=== PATIENT | female | born 1940 | race American Indian/Alaskan Native ===

== ENCOUNTER 2017-02-20 14:08 | Inpatient (IN) | payer MEDICARE, MEDICAID ==
--- NOTE | 2017-02-20 18:30 | Emergency Department Report ---
ED Altered Mental Status HPI - General Chief Complaint: Weakness Stated Complaint: WEAKNESS Time Seen by Provider: 02/20/17 18:22 Source: EMS Mode of arrival: Stretcher Limitations: No Limitations - History of Present Illness Initial Comments: 77 YO FEMALE HAD AN EPISODE OF UNRESPONSIVENESS WHILE IN [facility] TODAY AT 1300. PT WAS ALTERED UNTIL SHE ARRIVED HERE AT 1400. SHE HAS H/O PRIOR CVA X 4YRS AGO WHICH LEFT HER WITH INABILITY TO SPEAK NOR[place]GI[place]. SHE IS NOR[place]GIAN APHASIC AND SOME LEFT SIDED WEAKNESS INN BOTH UPPER AND LOWER EXTREMITIES WITH MILD FACIAL DROOP. MD Complaint: altered mental status, decreased responsiveness -: Sudden, hour(s) (4hrs ago) Context: history of similar presen Associated Symptoms: denies other symptoms - Related Data Home Medications Medication Instructions Recorded Confirmed Last Taken Aspirin [Aspirin BABY CHEW TAB] 81 mg PO DAILY 07/31/13 04/02/14 02/20/17 Losartan [Cozaar] 50 mg PO QDAY 07/31/13 04/02/14 02/20/17 Multivit-Min/Iron/Folic/Lutein 1 each PO DAILY 04/02/14 04/02/14 02/20/17 [Centrum Silver Women Tablet] Pravastatin [Pravachol] 20 mg PO DAILY 04/02/14 04/02/14 02/19/17 Amiodarone [Cordarone 200 MG TAB] 200 mg PO 02/20/17 02/19/17 Apixaban [Eliquis] BID 02/20/17 02/20/17 Metoprolol Tartrate 50 mg PO BID 02/20/17 02/20/17 02/20/17 Omeprazole 20 mg PO BID 02/20/17 02/20/17 02/20/17 15:32 Allergies Allergy/AdvReac Type Severity Reaction Status Date / Time No Known Allergies Allergy Verified 08/01/13 00:56 ED Review of Systems ROS: Stated complaint: WEAKNESS Other details as noted in HPI Comment: All other systems reviewed and negative ED Past Medical Hx - Past Medical History Hx Hypertension: Yes Hx CVA: Yes Hx Diabetes: No Hx GERD: Yes Hx Arthritis: Yes Hx Dementia: Yes (Post CVA) Additional medical history: HIGH CHOLESTEROL - Family History Family history: hypertension - Social History Smoking Status: Never Smoker Substance Use Type: None - Medications Home Medications: Home Medications Medication Instructions Recorded Confirmed Last Taken Type Aspirin [Aspirin BABY CHEW TAB] 81 mg PO DAILY 07/31/13 04/02/14 02/20/17 History Losartan [Cozaar] 50 mg PO QDAY 07/31/13 04/02/14 02/20/17 History Multivit-Min/Iron/Folic/Lutein 1 each PO DAILY 04/02/14 04/02/14 02/20/17 History [Centrum Silver Women Tablet] Pravastatin [Pravachol] 20 mg PO DAILY 04/02/14 04/02/14 02/19/17 History Amiodarone [Cordarone 200 MG TAB] 200 mg PO 02/20/17 02/19/17 History Apixaban [Eliquis] BID 02/20/17 02/20/17 History Metoprolol Tartrate 50 mg PO BID 02/20/17 02/20/17 02/20/17 History Omeprazole 20 mg PO BID 02/20/17 02/20/17 02/20/17 15:32 History ED Physical Exam - General Limitations: Language Barrier (SPEAKS ONLY TERRY, RESIDUAL NOR[place]GIAN APHASIA FROM PRIOR CVA) General appearance: alert, in no apparent distress - Head Head exam: Present: atraumatic, normocephalic - Eye Eye exam: Present: normal appearance, EOMI - ENT ENT exam: Present: mucous membranes moist - Neck Neck exam: Present: normal inspection, full ROM - Respiratory Respiratory exam: Present: normal lung sounds bilaterally. Absent: respiratory distress, wheezes, rales - Cardiovascular Cardiovascular Exam: Present: regular rate, normal rhythm. Absent: systolic murmur, diastolic murmur, rubs, gallop - GI/Abdominal GI/Abdominal exam: Present: soft, normal bowel sounds, other (LARGE CENTRIPITAL FAT). Absent: distended, tenderness - Rectal Rectal exam: Present: deferred - Extremities Exam Extremities exam: Present: normal inspection, full ROM, tenderness (RIGHT KNEE SWOLLEN AND TENDER AROUND ENTIRE KNEE, NO CALF TENDERNESS BILATERAL, 4/5 WEAKNESS ON LEFT LEG, UNBALE TO LIFT RIGHT LEG BECAUSE OF KNEE PAIN) - Back Exam Back exam: Present: normal inspection - Neurological Exam Neurological exam: Present: alert, oriented X3, abnormal gait, motor sensory deficit (LEFT 3-4/5. RIGHT UNABLE TO RAISE LEG SECONDARY TO KNEE SWELLING), other (LEFT UPPER AND LOWER EXTREMITY WEAKNESS) - Psychiatric Psychiatric exam: Present: normal affect, normal mood - Skin Skin exam: Present: warm, dry, intact, normal color. Absent: rash ED Course Vital Signs 02/20/17 02/20/17 02/20/17 14:31 14:45 15:00 Temperature Pulse Rate 63 Respiratory 16 Rate Blood Pressure 146/70 149/70 O2 Sat by Pulse Oximetry 02/20/17 02/20/17 02/20/17 15:17 15:30 15:45 Temperature Pulse Rate Respiratory Rate Blood Pressure 110/89 156/87 171/86 O2 Sat by Pulse Oximetry 02/20/17 02/20/17 02/20/17 16:01 16:15 16:22 Temperature 98.5 F Pulse Rate Respiratory 18 Rate Blood Pressure 163/71 164/77 O2 Sat by Pulse 100 Oximetry 02/20/17 02/20/17 02/20/17 16:31 16:46 17:01 Temperature Pulse Rate Respiratory Rate Blood Pressure 169/51 177/70 160/75 O2 Sat by Pulse Oximetry 02/20/17 02/20/17 02/20/17 17:16 17:31 17:46 Temperature Pulse Rate Respiratory Rate Blood Pressure 165/76 176/106 161/61 O2 Sat by Pulse Oximetry 02/20/17 02/20/17 02/20/17 18:01 18:16 18:46 Temperature Pulse Rate Respiratory Rate Blood Pressure 165/66 160/63 152/62 O2 Sat by Pulse Oximetry 02/20/17 02/20/17 02/20/17 19:00 19:16 19:40 Temperature Pulse Rate Respiratory Rate Blood Pressure 151/61 158/63 158/63 O2 Sat by Pulse 97 98 100 Oximetry 02/20/17 02/20/17 02/20/17 19:46 20:01 20:15 Temperature Pulse Rate Respiratory Rate Blood Pressure 147/71 146/71 160/73 O2 Sat by Pulse Oximetry 02/20/17 02/20/17 02/20/17 20:30 20:46 21:01 Temperature Pulse Rate Respiratory Rate Blood Pressure 175/81 174/75 158/72 O2 Sat by Pulse Oximetry 02/20/17 02/20/17 02/20/17 21:16 21:30 21:45 Temperature Pulse Rate 60 60 Respiratory Rate Blood Pressure 166/72 166/72 134/73 O2 Sat by Pulse Oximetry 12/12/2802/20/17 02/20/17 22:00 22:16 22:30 Temperature Pulse Rate 61 60 60 Respiratory Rate Blood Pressure 140/50 128/49 122/52 O2 Sat by Pulse Oximetry 02/20/17 02/20/17 02/20/17 22:45 23:00 23:16 Temperature Pulse Rate 60 60 Respiratory Rate Blood Pressure 127/44 125/50 131/49 O2 Sat by Pulse Oximetry 02/20/17 02/20/17 02/20/17 23:30 23:46 23:54 Temperature Pulse Rate 60 60 60 Respiratory 10 L 24 24 Rate Blood Pressure 128/53 115/45 128/53 O2 Sat by Pulse Oximetry 02/21/17 02/21/17 02/21/17 00:00 00:10 00:20 Temperature Pulse Rate 60 60 60 Respiratory 21 22 22 Rate Blood Pressure 122/54 122/54 129/56 O2 Sat by Pulse Oximetry 02/21/17 00:30 Temperature Pulse Rate 60 Respiratory 18 Rate Blood Pressure 129/56 O2 Sat by Pulse Oximetry - Lab Data Result diagrams: 02/20/17 18:35 02/20/17 18:35 Lab Results 02/20/17 02/20/17 02/20/17 Range/Units 18:35 18:35 18:35 WBC 6.3 (4.5-11.0) K/mm3 RBC 4.27 (3.65-5.03) M/mm3 Hgb 14.0 (10.1-14.3) gm/dl Hct 41.6 (30.3-42.9) % MCV 98 H (79-97) fl MCH 33 H (28-32) pg MCHC 34 (30-34) % RDW 13.8 (13.2-15.2) % Plt Count 154 (140-440) K/mm3 Lymph % (Auto) 22.2 (13.4-35.0) % [place] % (Auto) 14.8 H (0.0-7.3) % Eos % (Auto) 0.4 (0.0-4.3) % Baso % (Auto) 0.7 (0.0-1.8) % Lymph # 1.4 (1.2-5.4) K/mm3 [place] # 0.9 H (0.0-0.8) K/mm3 Eos # 0.0 (0.0-0.4) K/mm3 Baso # 0.0 (0.0-0.1) K/mm3 Seg Neutrophils % 61.9 (40.0-70.0) % Seg Neutrophils # 3.9 (1.8-7.7) K/mm3 D-Dimer 177.88 (0-234) ng/mlDDU Sodium 141 (137-145) mmol/L Potassium 5.0 (3.6-5.0) mmol/L Chloride 100.4 (98-107) mmol/L Carbon Dioxide 25 (22-30) mmol/L Anion Gap 21 mmol/L BUN 17 (7-17) mg/dL Creatinine 1.5 H (0.7-1.2) mg/dL Estimated GFR 41 ml/min BUN/Creatinine Ratio 11 % Glucose 94 (65-100) mg/dL Lactic Acid (0.7-2.0) mmol/L Calcium 8.9 (8.4-10.2) mg/dL Total Bilirubin 0.30 (0.1-1.2) mg/dL AST 42 H (5-40) units/L ALT 43 (7-56) units/L Alkaline Phosphatase 104 (35-129) units/L Total Creatine Kinase 108 (30-135) units/L CK-MB (CK-2) 1.2 (0.0-4.0) ng/mL CK-MB (CK-2) Rel Index 1.1 (0-4) Troponin T < 0.010 (0.00-0.029) ng/mL C-Reactive Protein 1.60 H (0.00-1.30) mg/dL NT-Pro-B Natriuret Pep 213.0 (0-900) pg/mL Total Protein 7.2 (6.3-8.2) g/dL Albumin 4.1 (3.9-5) g/dL Albumin/Globulin Ratio 1.3 % 02/20/17 Range/Units 18:35 WBC (4.5-11.0) K/mm3 RBC (3.65-5.03) M/mm3 Hgb (10.1-14.3) gm/dl Hct (30.3-42.9) % MCV (79-97) fl MCH (28-32) pg MCHC (30-34) % RDW (13.2-15.2) % Plt Count (140-440) K/mm3 Lymph % (Auto) (13.4-35.0) % [place] % (Auto) (0.0-7.3) % Eos % (Auto) (0.0-4.3) % Baso % (Auto) (0.0-1.8) % Lymph # (1.2-5.4) K/mm3 [place] # (0.0-0.8) K/mm3 Eos # (0.0-0.4) K/mm3 Baso # (0.0-0.1) K/mm3 Seg Neutrophils % (40.0-70.0) % Seg Neutrophils # (1.8-7.7) K/mm3 D-Dimer (0-234) ng/mlDDU Sodium (137-145) mmol/L Potassium (3.6-5.0) mmol/L Chloride (98-107) mmol/L Carbon Dioxide (22-30) mmol/L Anion Gap mmol/L BUN (7-17) mg/dL Creatinine (0.7-1.2) mg/dL Estimated GFR ml/min BUN/Creatinine Ratio % Glucose (65-100) mg/dL Lactic Acid 2.20 H* (0.7-2.0) mmol/L Calcium (8.4-10.2) mg/dL Total Bilirubin (0.1-1.2) mg/dL AST (5-40) units/L ALT (7-56) units/L Alkaline Phosphatase (35-129) units/L Total Creatine Kinase (30-135) units/L CK-MB (CK-2) (0.0-4.0) ng/mL CK-MB (CK-2) Rel Index (0-4) Troponin T (0.00-0.029) ng/mL C-Reactive Protein (0.00-1.30) mg/dL NT-Pro-B Natriuret Pep (0-900) pg/mL Total Protein (6.3-8.2) g/dL Albumin (3.9-5) g/dL Albumin/Globulin Ratio % - EKG Data -: EKG Interpreted by Ok EKG shows normal: sinus rhythm (ATRIAL PACED RHYTHM), axis, intervals, QRS complexes (Q IN V1-V2 -OLD ANTERIOR SEPTAL INFARCTION) Rate: normal (60) - Radiology Data Radiology results: report reviewed (CXR; NO ACUTE DISEASE CT: NO ACUTE DISEASE) - Differential Diagnosis CVA,HYPO OR HYPERGLYCEMIA Critical care attestation.: If time is entered above; I have spent that time in minutes in the direct care of this critically ill patient, excluding procedure time. ED Disposition Clinical Impression: Renal insufficiency Altered mental status Qualifiers: Altered mental status type: unspecified Qualified Code(s): R41.82 - Altered mental status, unspecified Disposition: DC-09 OP ADMIT IP TO THIS HOSP Is pt being admited?: Yes Condition: Stable Time of Disposition: 01:29 (CASE REVIEWED WITH DR NAJERA AND HE AVE ADMIT HER TO THE HOSPITAL)
[2017-02-20 18:55] LABS: Basophils % (Auto) 0.7 % (0.0-1.8); Eosinophils % (Auto) 0.4 % (0.0-4.3); Hematocrit 41.6 % (30.3-42.9); Mean Corpuscular HGB Conc 34 % (30-34); Mean Corpuscular Hemoglobin 33 pg (28-32); Mean Corpuscular Volume 98 fl (79-97); Platelet Count 154 K/mm3 (140-440); Red Blood Count 4.27 M/mm3 (3.65-5.03); Red Cell Distribution Width 13.8 % (13.2-15.2); White Blood Count 6.3 K/mm3 (4.5-11.0)
--- NOTE | 2017-02-20 19:17 | Cat Scan Report ---
FINAL REPORT PROCEDURE: CT HEAD/BRAIN WO CON TECHNIQUE: Computerized tomography of the head was performed without contrast material. HISTORY: ams COMPARISON: No prior studies are available for comparison. FINDINGS: Mild changes of chronic sinusitis are seen. Mastoid air cells appear clear. Calcifications are seen in the distal ICAs. No calvarial fracture is seen. There is encephalomalacia in the left temporal lobe and left frontal lobe, likely from prior CVA. Gliosis is seen in this region, and there are increased confluent hypodensities in the left periventricular white matter compared to the right side. Periventricular changes of likely due to chronic small vessel ischemic disease. There is mild compensatory enlargement of the left lateral ventricle but no hydrocephalus is seen. No acute intracranial hemorrhage or mass effect is seen. IMPRESSION: Old left-sided ischemic changes are seen with minimal chronic small vessel ischemic changes in the right periventricular white matter. No acute abnormality is seen.
[2017-02-20 19:26] LABS: Creatine Kinase MB 1.2 ng/mL (0.0-4.0)
[2017-02-20 19:27] LABS: Alanine Aminotransferase 43 units/L (7-56); Albumin 4.1 g/dL (3.9-5); Albumin/Globulin Ratio 1.3 %; Alkaline Phosphatase 104 units/L (35-129); BUN/Creatinine Ratio 11; Blood Urea Nitrogen 17 mg/dL (7-17); Calcium 8.9 mg/dL (8.4-10.2); Carbon Dioxide 25 mmol/L (22-30); Creatine Kinase 108 units/L (30-135); Glucose 94 mg/dL (65-100); Total Protein 7.2 g/dL (6.3-8.2)
[2017-02-20 19:28] LABS: Anion Gap 21 mmol/L; Chloride 100.4 mmol/L (98-107); Sodium 141 mmol/L (137-145)
--- NOTE | 2017-02-20 20:01 | XRay Report ---
FINAL REPORT PROCEDURE: XR CHEST ROUTINE 2V TECHNIQUE: Two views of the chest are obtained HISTORY: pneumonia,chf/ COMPARISON: No prior studies are available for comparison. FINDINGS: The heart is normal in size. There is no focal infiltrate, pneumothorax or pleural effusion. Pacemaker leads are directed towards the right atrial appendage and right ventricle. Mildly prominent fat pad is seen adjacent to the left heart border. IMPRESSION: No evidence of CHF or pneumonia is seen.
[2017-02-20] MEDS ORDERED: ZOFRAN IV PRN (22:45)
[2017-02-20] MEDS ORDERED: TYLENOL PO PRN (22:45)
--- NOTE | 2017-02-21 04:22 | History and Physical Report ---
CHIEF COMPLAINT: Change in mental status. Other complaints include weakness. HISTORY OF PRESENT ILLNESS: The patient is a 77-year-old female who went to [facility] and while in [facility], the patient was noted to have altered mental status and was bending down and feeling weak and had some decreased responsiveness that lasted for some time. There was no history of chest pain, no history of shortness of breath, fever, chills, nausea or vomiting. The patient was subsequently brought to the Emergency Room, states that she remembered people in the [employer] calling her name and she was responding by answering, but unable to have a conversation. PAST MEDICAL HISTORY: Pertinent for CVA. There was also history of gastroesophageal reflux disease, arthritis, dementia following CVA, high cholesterol. PAST SURGICAL HISTORY: Pertinent for pacemaker placement. FAMILY HISTORY: Pertinent for hypertension. SOCIAL HISTORY: The patient stays with the daughter, does not smoke, does not drink alcohol, and does not use illicit drug. MEDICATIONS: The patient is on aspirin 81 mg by mouth daily, losartan 50 mg by mouth daily, Centrum Silver Women multivitamin/iron/folic acid tablet 1 by mouth daily, pravastatin 20 mg by mouth daily, amiodarone 200 mg by mouth daily, Eliquis 2.5 mg by mouth twice daily, metoprolol tartrate 50 mg by mouth twice daily, omeprazole 20 mg by mouth twice daily. ALLERGIES: There are no known drug allergies. REVIEW OF SYSTEMS: CONSTITUTIONAL: There is no fever, no chills, no diaphoresis. HEENT: There is no headache or sore throat. CARDIOVASCULAR: There is no chest pain or orthopnea. RESPIRATORY: There is no shortness of breath or cough. GASTROINTESTINAL: There is no nausea, no vomiting, no abdominal pain, diarrhea or constipation. NEUROLOGIC: Change in mental status noted, weakness noted. MUSCULOSKELETAL: There is no joint pain or swelling. DERMATOLOGIC: There is no skin rash or itching. GENITOURINARY: There is no dysuria, hematuria or flank pain. Rest of system review is normal. PHYSICAL EXAMINATION: GENERAL: At the time of exam, the patient was found to be alert, oriented x 3 and not in acute distress. VITAL SIGNS: Shows temperature of 99.6 degrees Fahrenheit, pulse of 60, respirations 22, blood pressure 122/54. HEENT: Showed pupils to be equal, round, reactive to light and accommodation. Extraocular muscles are intact. NECK: Supple with no JVD or carotid bruit. CARDIOVASCULAR: Show first and second heart sounds with no gallops or murmur. RESPIRATORY: Show good air entry on both sides of the lung with no abnormal breath sounds. GASTROINTESTINAL: Show abdomen to be full, soft, nontender with no organomegaly or rigidity. NEUROLOGIC: Shows weakness on the left side from the old CVA with no new focal neurological deficit. MUSCULOSKELETAL: Show no joint swelling or tenderness. DERMATOLOGIC: Show no skin rash. GENITOURINARY: Showing no costovertebral angle tenderness. PERTINENT LABORATORY DATA AND IMAGING STUDIES: The patient had CT of the head without contrast showed old left-sided ischemic changes as seen with minimal chronic small vessel ischemic changes in the right periventricular white matter, no acute abnormalities seen. Chest x-ray shows no evidence of CHF or pneumonia. DIAGNOSES: 1. Altered mental status. 2. Weakness. PLAN: The patient will be admitted to telemetry and will have MRI of the brain without contrast done in the morning. Also, the patient will have complete echocardiogram done in the morning. The patient will have bilateral carotid Doppler done in the morning. The patient will be on IV Zofran 4 mg every 8 hours for nausea and vomiting and would have Neurology consult with Dr. Swift or whoever is on for Neurology in the morning. The patient will also be on Tylenol 650 mg by mouth every 4 hours for fever and headache, and will be on oxygen by nasal cannula at 2 liter per minute. The patient's home medications will be reconciled and started accordingly. JOB# [id number] OCN/NTS
[2017-02-21 06:35] LABS: Creatine Kinase 105 units/L (30-135)
[2017-02-21 06:41] LABS: Creatine Kinase MB < 1.0 ng/mL (0.0-4.0)
--- NOTE | 2017-02-21 08:28 | Progress Note ---
Hospitalist Physical - Constitutional Vitals: Temp Pulse Resp BP Pulse Ox 97.6 F 61 20 158/68 97 02/21/17 05:00 02/21/17 05:00 02/21/17 05:00 02/21/17 05:00 02/21/17 05:00 Results - Labs CBC & Chem 7: 02/20/17 18:35 12 18:35 Labs: Laboratory Last Values WBC 6.3 K/mm3 (4.5-11.0) 02/20/17 18:35 RBC 4.27 M/mm3 (3.65-5.03) 02/20/17 18:35 Hgb 14.0 gm/dl (10.1-14.3) 02/20/17 18:35 Hct 41.6 % (30.3-42.9) 02/20/17 18:35 MCV 98 fl (79-97) H 02/20/17 18:35 MCH 33 pg (28-32) H 02/20/17 18:35 MCHC 34 % (30-34) 02/20/17 18:35 RDW 13.8 % (13.2-15.2) 02/20/17 18:35 Plt Count 154 K/mm3 (140-440) 02/20/17 18:35 Lymph % (Auto) 22.2 % (13.4-35.0) 02/20/17 18:35 [place] % (Auto) 14.8 % (0.0-7.3) H 02/20/17 18:35 Eos % (Auto) 0.4 % (0.0-4.3) 02/20/17 18:35 Baso % (Auto) 0.7 % (0.0-1.8) 02/20/17 18:35 Lymph # 1.4 K/mm3 (1.2-5.4) 02/20/17 18:35 [place] # 0.9 K/mm3 (0.0-0.8) H 02/20/17 18:35 Eos # 0.0 K/mm3 (0.0-0.4) 02/20/17 18:35 Baso # 0.0 K/mm3 (0.0-0.1) 02/20/17 18:35 Seg Neutrophils % 61.9 % (40.0-70.0) 02/20/17 18:35 Seg Neutrophils # 3.9 K/mm3 (1.8-7.7) 02/20/17 18:35 D-Dimer 177.88 ng/mlDDU (0-234) 02/20/17 18:35 Sodium 141 mmol/L (137-145) 02/20/17 18:35 Potassium 5.0 mmol/L (3.6-5.0) 02/20/17 18:35 Chloride 100.4 mmol/L (98-107) 02/20/17 18:35 Carbon Dioxide 25 mmol/L (22-30) 02/20/17 18:35 Anion Gap 21 mmol/L 02/20/17 18:35 BUN 17 mg/dL (7-17) 02/20/17 18:35 Creatinine 1.5 mg/dL (0.7-1.2) H 02/20/17 18:35 Estimated GFR 41 ml/min 02/20/17 18:35 BUN/Creatinine Ratio 11 % 02/20/17 18:35 Glucose 94 mg/dL (65-100) 02/20/17 18:35 Lactic Acid 2.20 mmol/L (0.7-2.0) H* 02/20/17 18:35 Calcium 8.9 mg/dL (8.4-10.2) 02/20/17 18:35 Total Bilirubin 0.30 mg/dL (0.1-1.2) 02/20/17 18:35 AST 42 units/L (5-40) H 02/20/17 18:35 ALT 43 units/L (7-56) 02/20/17 18:35 Alkaline Phosphatase 104 units/L (35-129) 02/20/17 18:35 Total Creatine Kinase 105 units/L (30-135) 02/21/17 05:56 CK-MB (CK-2) < 1.0 ng/mL (0.0-4.0) 02/21/17 05:56 CK-MB (CK-2) Rel Index 0.9 (0-4) 02/21/17 05:56 Troponin T < 0.010 ng/mL (0.00-0.029) 02/21/17 05:56 C-Reactive Protein 1.60 mg/dL (0.00-1.30) H 02/20/17 18:35 NT-Pro-B Natriuret Pep 213.0 pg/mL (0-900) 02/20/17 18:35 Total Protein 7.2 g/dL (6.3-8.2) 02/20/17 18:35 Albumin 4.1 g/dL (3.9-5) 02/20/17 18:35 Albumin/Globulin Ratio 1.3 % 02/20/17 18:35
[2017-02-21] MEDS ORDERED: NACL 0.9% 1000 ML 1,000 ML IV SCH (09:00)
[2017-02-21] MEDS ORDERED: CORDARONE PO SCH (10:00)
[2017-02-21] MEDS ORDERED: THERAGRAN-M Tab PO SCH (10:00)
[2017-02-21] MEDS ORDERED: PROTONIX PO SCH (10:00)
[2017-02-21] MEDS ORDERED: BABY ASPIRIN PO SCH (10:00)
[2017-02-21] MEDS ORDERED: ELIQUIS PO SCH (10:00)
[2017-02-21] MEDS ORDERED: COZAAR PO SCH (10:00)
[2017-02-21] MEDS ORDERED: PRAVACHOL PO SCH (10:00)
[2017-02-21] MEDS ORDERED: NON-FORMULARY (Multivit-Min/Iron/Folic/Lutein [Centrum Silver Women Tablet] 1 EACH) PO SCH (10:00)
[2017-02-21] MEDS ORDERED: NON-FORMULARY (Omeprazole [Omeprazole] 20 MG) PO SCH (10:00)
[2017-02-21] MEDS ORDERED: LOPRESSOR PO SCH (10:00)
--- NOTE | 2017-02-21 13:16 | Consultation ---
History of Present Illness Consult date: 02/21/17 History of present illness: chart reviewed and patient's CT was reviewed this shows old lefts ided stroke doubt acute stroke mor likely TIA or seizure w/u pending and check labs Medications and Allergies Allergies Allergy/AdvReac Type Severity Reaction Status Date / Time No Known Allergies Allergy Verified 08/01/13 00:56 Home Medications Medication Instructions Recorded Confirmed Last Taken Type Aspirin [Aspirin BABY CHEW TAB] 81 mg PO DAILY 07/31/13 02/21/17 02/20/17 History Losartan [Cozaar] 50 mg PO QDAY 07/31/13 02/21/17 02/20/17 History Multivit-Min/Iron/Folic/Lutein 1 each PO DAILY 04/02/14 02/21/17 02/20/17 History [Centrum Silver Women Tablet] Pravastatin [Pravachol] 20 mg PO BID 04/02/14 02/21/17 02/19/17 21:00 History Amiodarone [Cordarone 200 MG TAB] 200 mg PO BID 02/20/17 02/21/17 02/19/17 21: 00 History Apixaban [Eliquis] 2.5 mg PO BID 02/20/17 02/21/17 02/20/17 History Metoprolol Tartrate 50 mg PO BID 02/20/17 02/20/17 02/20/17 History Omeprazole 20 mg PO BID 02/20/17 02/20/17 02/20/17 15:32 History Active Meds: Active Medications Acetaminophen (Tylenol) 650 mg PO Q4H PRN PRN Reason: For Pain/Fever/Headache Amiodarone HCl (Cordarone) 200 mg PO DAILY [facility] [place] Last Admin: 02/21/17 09:00 Dose: 200 mg Apixaban (Eliquis) 2.5 mg PO BID [facility] [place] PRN Reason: Protocol Last Admin: 02/21/17 08:59 Dose: 2.5 mg Aspirin (Baby Aspirin) 81 mg PO DAILY [facility] [place] Last Admin: 02/21/17 09:00 Dose: 81 mg Sodium Chloride (Nacl 0.9% 1000 Ml) 1,000 mls @ 100 mls/hr IV DIRECT HUGH Losartan Potassium (Cozaar) 50 mg PO QDAY [facility] [place] Last Admin: 02/21/17 09:00 Dose: 50 mg Metoprolol Tartrate (Lopressor) 50 mg PO BID [facility] [place] Last Admin: 02/21/17 09:00 Dose: 50 mg Multivitamins/Minerals (Theragran-M Tab) 1 each PO QDAY [facility] [place] Last Admin: 02/21/17 09:01 Dose: 1 each Ondansetron HCl (Zofran) 4 mg IV Q8H PRN PRN Reason: Nausea And Vomiting Pantoprazole Sodium (Protonix) 20 mg PO BID [facility] [place] Last Admin: 02/21/17 08:59 Dose: 20 mg Pravastatin Sodium (Pravachol) 20 mg PO QHS [facility] [place] Last Admin: 02/21/17 09:02 Dose: Not Given Physical Examination - Vital Signs Vital Signs: Vital Signs Pulse Resp 63 16 02/20/17 14:31 02/20/17 14:31 Results - Laboratory Findings CBC and BMP: 02/20/17 18:35 02/20/17 18:35 Abnormal Lab Findings: Abnormal Labs 02/20/17 02/20/17 02/20/17 18:35 18:35 18:35 MCV 98 H MCH 33 H [place] % (Auto) 14.8 H [place] # 0.9 H Creatinine 1.5 H Lactic Acid 2.20 H* AST 42 H C-Reactive Protein 1.60 H
--- NOTE | 2017-02-21 14:02 | Discharge Summary ---
<DOREEN VENCES - Last Filed: 02/22/17 16:31> Providers - Providers Date of Admission: 02/20/17 22:36 Date of discharge: 02/22/17 Attending physician: PINA ARAGON MD 02/20/17 22:42 Consult to Physician [CONS] Routine Consulting Provider: CHICO MILLER Reason For Exam: DECREASED RESPONSIVENESS Place consult to:: CHICO AMYORGA Notified:: CHICO MAYORGA Phone number called:: [phone] Was contact made?: Yes If yes, spoke with:: VERNON Time called:: 09:43 Comment:: PATSY 02/21/17 08:43 Physical Therapy Evaluation and Treat [CONS] Routine Comment: Reason For Exam: CVA 02/21/17 08:44 Speech Therapy Evaluation and Treat [CONS] Routine Reason For Exam: cva Primary care physician: DICK WEEKS Hospitalization Condition: Stable Hospital course: Patient is a 77 years old female with past medical history of hypertension, CVA , arthritis, hyperlipidemia GERD and dementia CVA who presents to the emergency department for altered mental status and decreased responsiveness. Patient has diagnosis with altered mental status, hypertension, hyperlipidemia and Hx of CVA. CT of the head acute intercranial process. Unremarkable chest x-ray. Patient decrease responsiveness most likely due to dehydration. Patient altered mental status due to dementia; she is on her baseline per family members. She was treated with IV fluid and antihypertensive medication. Patient clinically improved. Patient was advised to follow up with her primary care. Discharge Diagnosed Altered mental status, HHypertension, Hyperlipidemia Hx of CVA. Disposition: [id number] HOME UNDER [facility] Core Measure Documentation - Palliative Care Palliative Care/ Comfort Measures: Not Applicable - Core Measures Any of the following diagnoses?: none Exam - Constitutional Vitals: Temp Pulse Resp BP Pulse Ox 99.0 F 60 18 125/62 97 02/21/17 08:22 02/21/17 10:00 02/21/17 08:22 02/21/17 09:00 02/21/17 08:22 General appearance: Present: other (Alert and oriented to self ) - EENT Eyes: Present: PERRL - Neck Neck: Present: supple - Respiratory Respiratory effort: normal Respiratory: bilateral: CTA - Cardiovascular Rhythm: regular Heart Sounds: Present: S1 & S2 - Abdominal General gastrointestinal: Present: soft, non-tender Female genitourinary: Present: deferred - Rectal Rectal Exam: deferred - Integumentary Integumentary: Present: clear, warm, dry - Musculoskeletal Musculoskeletal: strength equal bilaterally - Psychiatric Psychiatric: appropriate mood/affect - Neurologic Neurologic: moves all extremities - Allied Health Allied health notes reviewed: nursing Plan Activity: no restrictions Diet: low fat, low cholesterol, low salt Follow up with: PRIMARY CARE, [Referring] - 3-5 Days <PINA ARAGON - Last Filed: 02/22/17 17:42> Providers - Providers Date of Admission: 02/20/17 22:36 Attending physician: PINA ARAGON MD 02/20/17 22:42 Consult to Physician [CONS] Routine Consulting Provider: CHICO MILLER Reason For Exam: DECREASED RESPONSIVENESS Place consult to:: CHICO MAYORGA Notified:: CHICO MAYORGA Phone number called:: [phone] Was contact made?: Yes If yes, spoke with:: VERNON Time called:: 09:43 Comment:: PATSY 02/21/17 08:43 Physical Therapy Evaluation and Treat [CONS] Routine Comment: Reason For Exam: CVA 02/21/17 08:44 Speech Therapy Evaluation and Treat [CONS] Routine Reason For Exam: cva Primary care physician: DICK WEEKS Hospitalization Reason for admission: weakness, AMS Time spent for discharge: 31 minutes Core Measure Documentation - Palliative Care Palliative Care/ Comfort Measures: Not Applicable - Core Measures Any of the following diagnoses?: history only (stroke) Exam - Constitutional Vitals: Temp Pulse Resp BP Pulse Ox 98.7 F 60 18 168/59 98 02/21/17 14:17 02/21/17 14:17 02/21/17 14:17 02/21/17 14:17 02/21/17 14:17 Plan Activity: no restrictions Diet: low fat, low cholesterol, low salt
[2017-02-21 15:22] VITALS: BP 168/59
--- NOTE | 2017-02-22 01:45 | Consultation ---
HISTORY OF PRESENT ILLNESS: This is a 77-year-old black female that presents with an episode of unresponsiveness and a prior history of strokes and inability to speak. She was aphasic and had left-sided weakness. On presentation, she had been taking losartan, aspirin and has a prior history of hypertension, hypercholesterolemia. Initial examination showed the patient had a hematocrit of 41, white blood count of 6300. The patient was felt to have atrial fibrillation and old septal infarct. The patient was assessed, felt to have altered mental status, possibility of stroke was considered. The patient had a CT scan of the head, which was done in the Emergency Room that just showed old left-sided ischemic changes, chronic small vessels and right-sided periventricular white matter changes. No acute abnormality otherwise noted. PHYSICAL EXAMINATION: VITAL SIGNS: Blood pressure is 125/62, O2 sats 97%, respirations 18, pulse rate 60. She is aphasic. She has a right-sided weakness. NECK: Supple. HEENT: Ocular movements are full. NEUROLOGIC: Cranial nerves are intact. Gait is unremarkable. No tremors or asterixis. No focal seizure activity. IMPRESSION: Episode of unresponsiveness, suspect transient ischemic attack versus seizure. Possibility of acute stroke should be considered. We will get carotid artery ultrasound and echocardiography. At present, her vital signs are stable. Labs are relatively unremarkable. Stroke scale at present is 2, but this is likely chronic. JOB# [id number] RACHELL/HAYDEN
== END 2017-02-21 18:45 | disposition home health service (06) | DRG 641 ==
LOC: ED 14:08 → 4A 22:36 → 2B-ACE 23:55
PROVIDERS: ADMIT Internal Medicine; ATTEND Internal Medicine
DX: E86.0 Dehydration (principal); K21.9 Gastro-esophageal reflux disease without esophagitis; M19.90 Unspecified osteoarthritis, unspecified site; E78.00 Pure hypercholesterolemia, unspecified; F03.90 Unspecified dementia, unspecified severity, without behavioral disturbance, psychotic disturbance, mood disturbance, and anxiety; I10 Essential (primary) hypertension; Z95.0 Presence of cardiac pacemaker; Z79.82 Long term (current) use of aspirin; Z79.899 Other long term (current) drug therapy; Z82.49 Family history of ischemic heart disease and other diseases of the circulatory system; I69.398 Other sequelae of cerebral infarction; I69.320 Aphasia following cerebral infarction
CPT/HCPCS: 36415; 70450; 71020; 80053; 82140; 82550; 82553; 83880; 84484; 85025; 85379; 86140; 93005; 93010; 93306; 93880; 99285; A9270-GY; G8978-GP; G8979-GP; G8980-GP

== ENCOUNTER 2017-07-28 08:52 | Outpatient (CLI) | payer MEDICARE ==
--- NOTE | 2017-07-28 11:55 | Ultrasound Report ---
Pelvic sonogram: History: Abdominal pain, lower quadrant pain. Findings: Uterus measures 7.5 x 3.8 x 3.4 cm. Not optimally visualized. Limited study due to patient body habitus and overlying bowel gas. Right and left ovary not visualized. No fluid in the cul-de-sac. Impression: Limited study. Recommend transvaginal study.
--- NOTE | 2017-07-28 11:59 | Ultrasound Report ---
Abdominal sonogram: History: Abdominal pain left lower quadrant pain. Findings: Aortic diameter in visualized portion measures 1.9 cm. Fatty liver. Cyst at anterior right lobe of liver measures 2.5 cm. No intrahepatic or extrahepatic duct dilatation. Gallbladder wall thickness 2 mm. No calculi in the gallbladder. Pancreas normal. Right kidney 7.4 x 3.5 x 2.4 cm. Cortical thickness is 0.8 cm. Left kidney 8.9 x 3.8 x 3.3 cm. Cortical thickness 0.8 cm. Normal spleen. Impression: Fatty liver. Cyst in the liver.
== END 2017-07-28 08:53 | disposition home or self-care (01) ==
LOC: US 08:52
PROVIDERS: ATTEND Internal Medicine
DX: K76.0 Fatty (change of) liver, not elsewhere classified (principal); K76.89 Other specified diseases of liver
CPT/HCPCS: 76700; 76856